=== PATIENT | male | born 1955 | race Caucasian/White ===

== ENCOUNTER → 2018-11-02 | Outpatient (CLI) | payer OTHER ==
[~2018-11-02] MED LIST: ALPR0.25 PO; AMIO200T4 PO; ASCO250T12 PO; ASPI-482 PO; BECL25SP NS; CALC500T54 PO; CHOL200074 PO; CYAN250T5 PO; DIGO250T PO; DILT240C11 PO; FISH OIL OMEGA1 EACH PO; FURO-68 PO; GUAI-112 PO; LEVO500T59 PO; LOSA25TA54 PO; METO50TA6 PO; MULT-245 PO; OMEP40CA5 PO; POTA20TA82 PO; PRED20TA PO; WARF2TAB96 PO
--- NOTE | 2018-11-02 15:11 | KCIC ---
FOOT RIGHT 3V 11/02/2018 12:00 AM INDICATION: Right great toe pain for 3 months COMPARISON: None available. TECHNIQUE: 3 views the right foot are provided. FINDINGS: There is no acute fracture or dislocation. Bone mineralization is within normal limits. There is moderate joint space narrowing involving the first metatarsophalangeal joint with subcortical sclerosis and marginal osteophytosis compatible with mild/moderate osteoarthrosis. Regional soft tissues are within normal limits. There is no soft tissue gas or osseous erosion. IMPRESSION: No acute fracture or dislocation. Mild to moderate osteophytosis of the first metatarsophalangeal joint. Electronically signed by: Glenda Lantigua MD (11/02/2018 3:09 PM) [facility]
== END | disposition home or self-care (01) ==
LOC: KCIC 13:24
PROVIDERS: ATTEND Nurse Practitioner Family
DX: M19.071 Primary osteoarthritis, right ankle and foot (principal)
CPT/HCPCS: 73630

== ENCOUNTER → 2018-12-29 | Outpatient (CLI) | payer OTHER ==
[~2018-12-29] MED LIST changes: +OMEP40CA45 PO; -OMEP40CA5 PO
--- NOTE | 2018-12-29 13:47 | KCIC ---
EXAM: MRI right shoulder DATE: 12/29/2018 10:15 AM COMPARISON: None INDICATION: Right shoulder and right arm pain TECHNIQUE: Multiplanar, multisequence MRI of the right shoulder was performed without contrast. FINDINGS: Moderate AC joint degenerative changes are seen with inferior projecting osteophytes. Type I acromion. No os acromiale. Small right glenohumeral joint effusion. Subacromial-subdeltoid bursal fluid from full-thickness rotator cuff tear. There is a full-thickness, near full width tear of the supraspinatus tendon with retraction to the level of the acromion. Partial-thickness articular sided tear of the infraspinatus tendon involves approximately 50% tendon thickness measuring additional 1 cm posteriorly. Moderate increased signal of the infraspinatus tendon likely tendinosis. Muscle bulk and signal of the supraspinatus, infraspinatus and subscapularis is grossly normal. Moderate fatty atrophy of the teres minor without discrete teres minor tendon tear. No significant deltoid atrophy. No quadrilateral space mass. There is medial dislocation of the long head biceps tendon suggesting transverse ligament tear. Moderate increased signal and thickening of the subscapularis without discrete subscapularis tear. Moderate increased signal and thickening of the long head biceps tendon consistent with moderate tendinosis. No discrete labral tear is seen. No evidence for fracture or osteonecrosis. Survey evaluation of the articular cartilage, grossly preserved. IMPRESSION: 1. Full-thickness, near full width tear of the supraspinatus tendon with retraction to the acromion. 2. Transverse ligament tear with medial dislocation of the biceps over the subscapularis tendon. Underlying subscapularis and long head biceps tendinosis 3. Moderate fatty atrophy of the teres minor without discrete teres minor tendon tear. No deltoid atrophy or quadrilateral space mass. Rotator cuff muscle signal and bulk is otherwise normal. Electronically signed by: Abdon Howard MD (12/29/2018 1:44 PM) [facility]
== END | disposition home or self-care (01) ==
LOC: KCIC MRI 09:56
PROVIDERS: ATTEND Nurse Practitioner Family
DX: S43.084A Other dislocation of right shoulder joint, initial encounter (principal); S43.491A Other sprain of right shoulder joint, initial encounter; S46.011A Strain of muscle(s) and tendon(s) of the rotator cuff of right shoulder, initial encounter; M75.21 Bicipital tendinitis, right shoulder; M25.411 Effusion, right shoulder; X58.XXXA Exposure to other specified factors, initial encounter; Y93.89 Activity, other specified; Y92.89 Other specified places as the place of occurrence of the external cause; Y99.8 Other external cause status
CPT/HCPCS: 73221

== ENCOUNTER 2019-02-04 12:59 | Emergency (ER) | payer OTHER ==
[~2019-02-04] VITALS: Ht 167.6 cm; Wt 88.9 kg
[~2019-02-04 12:59] MED LIST changes: -DIGO250T PO; +DIGO250T3 PO; +POTA20TA4 PO; -POTA20TA82 PO
[2019-02-04 14:19] VITALS: BP 128/73
--- NOTE | 2019-02-04 14:58 | RAD ---
Left ankle x-rays 3 views. HISTORY: Left foot and ankle pain and swelling. FINDINGS: No fracture. No dislocation. No talus osteochondral lesion. There is ankle soft tissue edema and swelling. IMPRESSION: No acute osseous injury. Soft tissue edema and swelling. Left foot x-rays 3 views HISTORY: Left ankle pain and swelling. FINDINGS: There is ankle foot soft tissue edema and swelling. No fracture, dislocation or arthritic change. IMPRESSION: No acute osseous injury. Soft tissue edema and swelling. Electronically signed by: Ulices Roberto MD (02/04/2019 2:55 PM) [facility] [place]
--- NOTE | 2019-02-04 14:58 | RAD ---
Left ankle x-rays 3 views. HISTORY: Left foot and ankle pain and swelling. FINDINGS: No fracture. No dislocation. No talus osteochondral lesion. There is ankle soft tissue edema and swelling. IMPRESSION: No acute osseous injury. Soft tissue edema and swelling. Left foot x-rays 3 views HISTORY: Left ankle pain and swelling. FINDINGS: There is ankle foot soft tissue edema and swelling. No fracture, dislocation or arthritic change. IMPRESSION: No acute osseous injury. Soft tissue edema and swelling. Electronically signed by: Ulices Roberto MD (02/04/2019 2:55 PM) [facility] [place]
--- NOTE | 2019-02-04 15:10 | PHYS DOC ---
Past Medical History Past Medical History: GERD, Other Additional Past Medical Histor: seasonal allergies, prostate ca (NADIYA GARCIA APRN) Past Surgical History: Appendectomy, Cholecystectomy, Tonsillectomy (NADIYA GARCIA APRN) Alcohol Use: None Drug Use: None (NADIYA GARCIA APRN) Attending Signature I have participated in the care of this patient and I have reviewed and agree with all pertinent clinical information above including history, exam, and recommendations. (MAGDY JAIMES MD) Adult General Chief Complaint Chief Complaint: FOOT INJURY PAIN [facility] HPI Patient is a 63 year old male, accompanied by his , who presents to the emergency department with complaints of left ankle and foot pain and swelling for the last 2 days. Patient denies any known injury. He states that in the past he had some right toe pain that is doctor felt was gout. Patient reports concern is that this is also possibly gout. He denies any fever, drainage from the site, rash, numbness, tingling, or weakness. He states that the foot and ankle hurt so bad he is unable to bear weight. He currently rates his pain a 3 out of 10 at rest, the pain increases if he is to bear weight or tries to ambulate. All other ROS is neg unless otherwise noted in HPI. (NADIYA GARCIA APRN) Review of Systems Review of Systems See Above (NADIYA GARCIA APRN) Allergies Allergies Allergies Coded Allergies Type Severity Reaction Last Updated Verified lisinopril Allergy Unknown 02/04/19 Yes thimerosal Allergy Unknown 06/02/13 Yes (MAGDY JAIMES MD) Physical Exam Physical Exam See Above Constitutional: Well developed, well nourished, no acute distress, non-toxic appearance. [] HENT: Normocephalic, atraumatic, bilateral external ears normal, nose normal. [] Eyes: PERRLA, EOMI, conjunctiva normal, no discharge. [] Neck: Normal range of motion, no stridor. [] Cardiovascular:Heart rate regular rhythm Lungs & Thorax: Respirations even and unlabored, no retractions, no respiratory distress Skin: Warm, dry; redness and warmth to medial left foot concerning for cellulitis vs gout Extremities: L foot and L ankle diffuse tenderness to palpation, no deformity, no cyanosis, no clubbing, ROM intact, 2+ edema Neurologic: Alert and oriented X 3, normal motor function, normal sensory function, no focal deficits noted. [] Psychologic: Affect normal, judgement normal, mood normal. [] (NADIYA GARCIA APRN) Current Patient Data Vital Signs Vital Signs Date Time Temp Pulse Resp B/P (MAP) Pulse Ox O2 Delivery O2 Flow Rate FiO2 02/04/19 14:19 99.2 69 128/73 (91) 96 Room Air 99.2 (MAGDY JAIMES MD) EKG EKG [] (NADIYA GARCIA APRN) Radiology/Procedures Radiology/Procedures PROCEDURE: ANKLE LEFT 3V Left ankle x-rays 3 views. HISTORY: Left foot and ankle pain and swelling. FINDINGS: No fracture. No dislocation. No talus osteochondral lesion. There is ankle soft tissue edema and swelling. IMPRESSION: No acute osseous injury. Soft tissue edema and swelling. Left foot x-rays 3 views HISTORY: Left ankle pain and swelling. FINDINGS: There is ankle foot soft tissue edema and swelling. No fracture, dislocation or arthritic change. IMPRESSION: No acute osseous injury. Soft tissue edema and swelling. [] (NADIYA GARCIA APRN) Course & Med Decision Making Course & Med Decision Making Pertinent Labs and Imaging studies reviewed. (See chart for details) [] (NADIYA GARCIA APRN) Dragon Disclaimer Dragon Disclaimer This electronic medical record was generated, in whole or in part, using a voice recognition dictation system. (NADIYA GARCIA APRN) Departure Departure Impression: Primary Impression: Pain in left ankle and joints of left foot Additional Impressions: Acute gout of left foot Cellulitis of left foot Disposition: 01 HOME, SELF-CARE Condition: STABLE Referrals: IDRIS ACEVES APRN (PCP) Patient Instructions: Cellulitis, [id number], Gout, [id number] Additional Instructions: Fill the prescriptions and use them as directed. Follow-up with your primary care doctor next week for further evaluation. Return to the ER if your symptoms worsen, you developed a fever, or uncontrolled pain. Use the crutches provided for ambulation. Scripts Naproxen (NAPROXEN) 500 Mg Tablet 1 TAB PO BID PRN for PAIN for 10 Days, #20 TAB 0 Refills take with food Prov: NADIYA GARCIA OPHTHALMOLOGY SURGICAL TECHNICIAN 02/04/19 Cephalexin (KEFLEX) 500 Mg Capsule 500 MG PO QID for 7 Days, #28 CAP 0 Refills Prov: NADIYA GARCIA OPHTHALMOLOGY SURGICAL TECHNICIAN 02/04/19 Problem Qualifiers Additional Impressions: Acute gout of left foot Gout etiology: unspecified cause Qualified Codes: M10.9 - Gout, unspecified NADIYA GARCIA APRN Feb 04, 2019 15:10 MAGDY JAIMES MD Feb 05, 2019 19:03
[2019-02-04] MEDS ORDERED: NAPR-514 PO (15:53)
[2019-02-04] MEDS ORDERED: CEPH-264 PO (15:53)
== END 2019-02-04 16:05 | disposition home or self-care (01) ==
LOC: ER 12:59
DX: M10.9 Gout, unspecified (principal); L03.116 Cellulitis of left lower limb; M25.572 Pain in left ankle and joints of left foot; M79.672 Pain in left foot; K21.9 Gastro-esophageal reflux disease without esophagitis; Z88.8 Allergy status to other drugs, medicaments and biological substances
CPT/HCPCS: 73610; 73630; 99284